=== PATIENT | female | born 1980 | race Hispanic/Latino ===

== ENCOUNTER 2017-01-27 18:03 | Emergency (ER) | payer SELFPAY ==
[~2017-01-27] VITALS: Ht 147.3 cm; Wt 43.1 kg
--- NOTE | 2017-01-27 18:48 | ED EENT ---
History of Present Illness General Chief Complaint: Oral/Throat Problems Stated Complaint: CHEST CONGESTION,SORE THROAT Nursing Triage Note: PT REPORTS SORE THROAT, NASAL CONGESTION, AND CHEST CONGESTION. PT REPORTS SHE IS CURRENTLY TAKING AMOXICILLIN. Source: patient Exam Limitations: no limitations History of Present Illness Time seen by provider: 18:45 Initial Comments To ER with sore throat, nasal congestion and chest congestion. She reports low- grade fevers. She was on amoxicillin for 7 days then finish this for a few days and then restarted on Wednesday of this week with today being Wednesday. She reports tenderness to the right side of her neck just medial to the angle of the jaw on the right. Associated Symptoms: fever Allergies and Home Medications Allergies Coded Allergies: No Known Allergies (Verified Allergy, Unknown, 09/28/05) Review of Systems Constitutional: see HPI, No chills Eyes: No Symptoms Reported, Pain Ears: No Symptoms Reported Nose: see HPI, congestion Mouth: no symptoms reported Throat: see HPI, pain Respiratory: no symptoms reported Cardiovascular: no symptoms reported Musculoskeletal: no symptoms reported Skin: no symptoms reported Neurological: No Symptoms Reported Hematologic/Lymphatic: No Symptoms Reported Past Ttrwoyq-Hbpaie-Itppgh Hx Patient Social History Alcohol Use: Denies Use Recreational Drug Use: No Smoking Status: Never a Smoker 2nd Hand Smoke Exposure: No Recent Foreign Travel: No Contact w/Someone Who Travel: No Recent Infectious Disease Expo: No Recent Hopitalizations: No Physical Abuse: No Sexual Abuse: No Seasonal Allergies Seasonal Allergies: No Surgeries History of Surgeries: Yes Surgeries: Tubal Ligation Psychosocial Suicide Risk Score: 0 Physical Exam Vital Signs Vital Sign - Last 12Hours 01/27/17 18:19 Temp 98.9 Pulse 78 Resp 16 B/P (MAP) 118/62 Pulse Ox 98 O2 Delivery Room Air General Appearance: WD/WN, no apparent distress Eyes: bilateral eye normal inspection, bilateral eye PERRL, bilateral eye EOMI Ears: bilateral ear auricle normal, bilateral ear canal normal, bilateral ear TM normal Mouth/Throat: normal mouth inspection Neck: full range of motion, normal inspection, lymphadenopathy (R) (tender right submandibular lymphadenopathy. Cobblestoning with slight erythema of the oropharynx.) Respiratory: normal breath sounds, no respiratory distress, no accessory muscle use Gastrointestinal: normal bowel sounds, non tender, soft Neurologic/Psychiatric: alert, normal mood/affect, oriented x 3 Skin: normal color, warm/dry Progress/Results/Core Measures Results/Orders Lab Results Laboratory Tests Test 01/27/17 18:50 Range/Units White Blood Count 7.0 4.3-11.0 10^3/uL Red Blood Count 3.74 L 4.35-5.85 10^6/uL Hemoglobin 10.7 L 11.5-16.0 G/DL Hematocrit 32 L 35-52 % Mean Corpuscular Volume 84 80-99 FL Mean Corpuscular Hemoglobin 29 25-34 PG Mean Corpuscular Hemoglobin Concent 34 32-36 G/DL Red Cell Distribution Width 13.9 10.0-14.5 % Platelet Count 298 130-400 10^3/uL Mean Platelet Volume 9.2 7.4-10.4 FL Neutrophils (%) (Auto) 61 42-75 % Lymphocytes (%) (Auto) 27 12-44 % Monocytes (%) (Auto) 11 0-12 % Eosinophils (%) (Auto) 1 0-10 % Basophils (%) (Auto) 0 0-10 % Neutrophils # (Auto) 4.3 1.8-7.8 X 10^3 Lymphocytes # (Auto) 1.9 1.0-4.0 X 10^3 Monocytes # (Auto) 0.8 0.0-1.0 X 10^3 Eosinophils # (Auto) 0.1 0.0-0.3 10^3/uL Basophils # (Auto) 0.0 0.0-0.1 10^3/uL My Orders Orders - DENILSON SMITH APRN Cbc With Automated Diff (01/27/17 18:44) Chest Pa/Lat (2 View) (01/27/17 18:44) Dexamethasone Pf Injection (Decadron Pf (01/27/17 19:00) Dexamethasone Injection (Decadron Inject (01/27/17 19:03) Medications Given in ED Current Medications Medications Dose Ordered Sig/Melani Route Start Time Stop Time Status Last Admin Dose Admin Dexamethasone Sodium Phosphate 10 mg ONCE ONCE IM 01/27/17 19:00 01/27/17 19:01 DC 01/27/17 19:11 10 MG Vital Signs/I&O Vital Sign - Last 12Hours 01/27/17 18:19 Temp 98.9 Pulse 78 Resp 16 B/P (MAP) 118/62 Pulse Ox 98 O2 Delivery Room Air Blood Pressure Mean: 80 Departure Impression Impression: Primary Impression: Viral infection Additional Impression: Lymphadenopathy Disposition: 01 HOME, SELF-CARE Condition: Stable Departure-Patient Inst. Decision time for Depature: 18:47 Referrals: [facility] (PCP/Family) Primary Care Physician Patient Instructions: LYMPH NODE SWELLING, Viral Pharyngitis Add. Discharge Instructions: 1. Tylenol and Motrin for pain 2. Return to ER for any worsening All discharge instructions reviewed with patient and/or family. Voiced understanding. DENILSON SMITH DENITRATOR OPERATOR Jan 27, 2017 18:48
[2017-01-27 18:57] LABS: BASOPHILS % (AUTO) 0 % (0-10); EOSINOPHILS # (AUTO) 0.1 10^3/uL (0.0-0.3); EOSINOPHILS % (AUTO) 1 % (0-10); LYMPHOCYTES # (AUTO) 1.9 X 10^3 (1.0-4.0); LYMPHOCYTES % (AUTO) 27 % (12-44); MEAN CORPUSCULAR HEMOGLOBIN 29 PG (25-34); MEAN CORPUSCULAR HGB CONC 34 G/DL (32-36); MEAN CORPUSCULAR VOLUME 84 FL (80-99); MEAN PLATELET VOLUME 9.2 FL (7.4-10.4); MONOCYTES # (AUTO) 0.8 X 10^3 (0.0-1.0); MONOCYTES % (AUTO) 11 % (0-12); NEUTROPHILS # (AUTO) 4.3 X 10^3 (1.8-7.8); NEUTROPHILS % (AUTO) 61 % (42-75); PLATELET COUNT 298 10^3/uL (130-400); RED BLOOD COUNT 3.74 10^6/uL (4.35-5.85); RED CELL DISTRIBUTION WIDTH 13.9 % (10.0-14.5)
[2017-01-27] MEDS ORDERED: DEXAMETHASONE PF 10 MG/ML (DECADRON) VIAL IM ONE (19:00)
--- NOTE | 2017-01-27 19:11 | Diagnostic Imaging Report ---
INDICATION: Chest congestion. EXAM: PA and lateral views of the chest are obtained. COMPARISON: No previous study is available for comparison at this time. FINDINGS: Heart size and pulmonary vasculature are within normal limits, and the lungs are clear, bilaterally. IMPRESSION: Unremarkable chest. Dictated by: Dictated on workstation # [id number]
[2017-01-27] MEDS: DEXAMETHASONE 10 MG/ML (DECADRON) 1 ML VIAL ONE (19:19)
[2017-01-27 19:20] VITALS: BP 0/0
[2017-01-28] MEDS: DEXAMETHASONE 10 MG/ML (DECADRON) 1 ML VIAL ONE (01:45)
== END 2017-01-27 19:20 | disposition home or self-care (01) ==
LOC: EDUNIT# 18:03 → ER 18:08
DX: B34.9 Viral infection, unspecified (principal); R59.0 Localized enlarged lymph nodes; Z98.51 Tubal ligation status
CPT/HCPCS: 36415; 71020; 85025; 96372; 99284